=== PATIENT | female | born 1980 | race Caucasian/White ===

== ENCOUNTER 2017-07-20 11:00 | Emergency (ER) | payer OTHER ==
--- NOTE | 2017-07-20 12:13 | ED ---
General Adult HPI - General Chief complaint: Skin/Abscess/Foreign Body Stated complaint: left ankle pain, rash on rt thight Time Seen by Provider: 07/20/17 11:58 Source: patient, RN notes reviewed Mode of arrival: ambulatory Limitations: no limitations - History of Present Illness Initial comments: 37 yo female presents for evaluation of rash on her inner right thigh, and left ankle pain. Patient states she noticed the rash approximately 2-3 days ago. It is mildly erythematous and itchy. Denies any known exposure. Regarding patient's left ankle pain, possibly 3 days ago she stepped rolling her left ankle inward. She has had some mild pain with ambulation since that time. She has been able to bear weight. She states there was initially some swelling, this was relieved with elevation and compression. No other injuries status post fall. - Related Data Home Medications Medication Instructions Recorded Confirmed Turmeric Root Extract [Turmeric] 500 mg PO DAILY 07/20/17 07/20/17 Previous Rx's Medication Instructions Recorded Clotrimazole [Clotrimazole AF] 1 applic TOPICAL BID #28 gm 07/20/17 Allergies Allergy/AdvReac Type Severity Reaction Status Date / Time Sulfa (Sulfonamide Allergy Burning Verified 07/20/17 11:48 Antibiotics) Sensation Review of Systems ROS Statement: Those systems with pertinent positive or pertinent negative responses have been documented in the HPI. ROS Other: All systems not noted in ROS Statement are negative. Past Medical History Past Medical History: No Reported History History of Any Multi-Drug Resistant Organisms: None Reported Past Surgical History: No Surgical Hx Reported Past Psychological History: No Psychological Hx Reported Smoking Status: Never smoker Past Alcohol Use History: None Reported Past Drug Use History: None Reported General Exam Limitations: no limitations General appearance: alert, in no apparent distress Head exam: Present: atraumatic, normocephalic Eye exam: Present: normal appearance, PERRL ENT exam: Present: normal exam Neck exam: Present: normal inspection. Absent: tenderness, meningismus Respiratory exam: Absent: respiratory distress Cardiovascular Exam: Present: regular rate, normal rhythm GI/Abdominal exam: Present: soft. Absent: distended Extremities exam: Present: normal inspection, normal capillary refill, other ( Tenderness on the lateral aspect of her left ankle. Good range of motion, no external deformity noted). Absent: pedal edema, joint swelling Neurological exam: Present: alert, oriented X3 Psychiatric exam: Present: normal affect, normal mood Skin exam: Present: warm, dry, rash (2 cm circular rash with a raised margin on the right inner thigh, consistent with tinea) Course Vital Signs 07/20/17 11:21 Temperature 98.1 F Pulse Rate 73 Respiratory 16 Rate Blood Pressure 116/58 O2 Sat by Pulse 99 Oximetry Medical Decision Making - Medical Decision Making 37-year-old female presenting with rash on the right inner thigh, and left ankle pain status post minor trauma. Rash is consistent with tinea, patient is prescribed clotrimazole. X-rays of the left ankle are obtained, negative for any acute bony abnormality. Patient will continue to wear her ankle wrapped, and elevate the extremity for swelling. Take Tylenol Motrin for pain. Follow- up with primary care physician. Disposition Clinical Impression: Tinea corporis, Ankle sprain Disposition: HOME SELF-CARE Condition: Good Instructions: Ankle Sprain (ED), Tinea Corporis (ED) Prescriptions: Clotrimazole [Clotrimazole AF] 1 applic TOPICAL BID #28 gm Referrals: None,Stated [Primary Care Provider] - 1-2 days Time of Disposition: 12:11
--- NOTE | 2017-07-20 12:21 | XR ---
EXAMINATION TYPE: XR ankle complete LT DATE OF EXAM: 07/20/2017 CLINICAL HISTORY: Pain after rolling her ankle. TECHNIQUE: Frontal, lateral and oblique images of the left ankle are obtained. COMPARISON: None. FINDINGS: There is no acute fracture/dislocation evident in the left ankle. The ankle mortise appea rs within normal limits. The overlying soft tissue appears unremarkable. IMPRESSION: There is no acute fracture or dislocation in the left ankle.
[2017-07-20 13:25] VITALS: BP 103/59; PULSE 64; RESP 18; TEMP 97
== END 2017-07-20 13:33 | disposition home or self-care (01) ==
LOC: EC 11:00
DX: S93.402A Sprain of unspecified ligament of left ankle, initial encounter (principal); B35.4 Tinea corporis; Z79.899 Other long term (current) drug therapy; Z88.2 Allergy status to sulfonamides; X50.1XXA Overexertion from prolonged static or awkward postures, initial encounter
CPT/HCPCS: 99283